=== PATIENT | male | born 1965 | race Caucasian/White ===

== ENCOUNTER 2022-12-02 23:35 | Inpatient (IN) | payer OTHER, SELFPAY ==
[2022-12-03 00:21] LABS: #Basophils 0.1 thou/uL (0.0-0.2); #Eosinphils 0.2 thou/uL (0.0-0.7); #Monocytes 1.7 thou/uL (0.11-0.59); #Neutrophils 9.2 thou/uL (1.40-6.50); %Basophils 0.6 % (0.0-1.0); %Eosinophils 1.4 % (0.0-10.0); %Lymphocytes 9.2 % (21.0-51.0); %Monocytes 13.5 % (0.0-10.0); %Neutrophils 74.4 % (42.0-75.0); Hemoglobin 10.3 g/dL (14.0-18.0); Mean Corpuscular HGB CONC 36.8 g/dL (32.0-36.0); Mean Corpuscular Volume 92.4 fl (78.0-98.0); Mean Platelet Volume 9.3 fL (7.4-10.4); Platelet Count 148 10x3/uL (130-400); RBC Distribution Width 13.8 % (11.5-14.5); Red Blood Cell (RBC) Count 3.03 mill/uL (4.70-6.10); White Blood Cell (WBC) Count 12.3 10x3/uL (4.8-10.8)
[2022-12-03] MEDS ORDERED: Ondansetron PF 4 MG/2 ML Vial ONE ×2 (00:26→10:58)
[2022-12-03] MEDS ORDERED: Sodium Chloride 0.9% 100 ML ONE (00:26)
[2022-12-03] MEDS ORDERED: cefTRIAXone (ROCEPHIN) 2 GM VIAL ONE (00:26)
[2022-12-03] MEDS ORDERED: Pantoprazole 80 MG in Sodium Chloride 0.9% 100 ML IVPB SCH (00:30)
[2022-12-03 00:34] LABS: INR-International Normal Ratio 1.4; PTT 30.2 sec (22.9-36.1); Prothrombin Time 17.6 sec (12.0-14.7)
[2022-12-03] MEDS ORDERED: Octreotide Acetate 100 MCG/ML VIAL ONE (00:38)
[2022-12-03] MEDS ORDERED: Octreotide Acetate 1,250 MCG in Sodium Chloride 0.9% 250 ML 250 ML IVPB SCH (00:45)
[2022-12-03 00:46] LABS: Acetaminophen Less than 10 mcg/mL (10.0-30.0); Alcohol Less than 10.0 mg/dL (Less than 10); Salicylate Less than 8.0 mg/dL (15.0-30.0)
[2022-12-03 00:50] LABS: ALT (SGPT) 44 U/L (8-55); AST (SGOT) 37 U/L (5-34); Alkaline Phosphatase 135 U/L (40-110); Anion Gap 13 mmol/L (10-20); BUN (Urea Nitrogen) 68 mg/dL (8.4-25.7); Bilirubin, Total 1.8 mg/dL (0.2-1.2); Calc. Creatinine Clearance 0 mL/min (70-130); Calcium 8.7 mg/dL (7.8-10.44); Carbon Dioxide 21 mmol/L (22-29); Chloride 96 mmol/L (98-107); Estimated GFR 54; Glucose 149 mg/dL (70-105); Potassium 5.6 mmol/L (3.5-5.1); Sodium 124 mmol/L (136-145)
[2022-12-03 01:05] LABS: Troponin I Less than 0.010 ng/mL (< 0.028)
[2022-12-03] MEDS ORDERED: Dextrose 5% in Water 1,000 ML IV PRN (02:01)
[2022-12-03] MEDS ORDERED: Dextrose 50% Abboject 50 ML SYRINGE SLOW IVP PRN (02:01)
[2022-12-03] MEDS ORDERED: Glucagon 1 MG/ML KIT IM PRN (02:01)
[2022-12-03] MEDS ORDERED: Acetaminophen 650 MG Suppository PR PRN ×2 (02:06→08:54)
[2022-12-03] MEDS ORDERED: Ondansetron PF 4 MG/2 ML Vial IVP PRN (02:06)
[2022-12-03] MEDS ORDERED: Insulin Regular 300 UNITS/3 ML VIAL IVP SCH (02:15)
[2022-12-03] MEDS ORDERED: Dextrose 5 %-0.45 % NaCl 500 ML IV SCH (02:15)
[2022-12-03 04:25] LABS: Troponin I Less than 0.010 ng/mL (< 0.028)
[2022-12-03] MEDS ORDERED: Lactated Ringer's 500 ML IV SCH (05:30)
[2022-12-03 06:43] LABS: #Eosinphils 0.1 thou/uL (0.0-0.7); #Monocytes 1.1 thou/uL (0.11-0.59); %Basophils 0.4 % (0.0-1.0); %Eosinophils 0.8 % (0.0-10.0); %Lymphocytes 7.4 % (21.0-51.0); %Monocytes 12.2 % (0.0-10.0); %Neutrophils 78.3 % (42.0-75.0); Hematocrit 26.6 % (42.0-52.0); Hemoglobin 9.5 g/dL (14.0-18.0); Mean Corpuscular HGB CONC 35.7 g/dL (32.0-36.0); Mean Corpuscular Hemoglobin 34.3 pg (27.0-31.0); Platelet Count 123 10x3/uL (130-400); RBC Distribution Width 13.8 % (11.5-14.5); Red Blood Cell (RBC) Count 2.77 mill/uL (4.70-6.10)
[2022-12-03] MEDS ORDERED: Pantoprazole 80 MG, Admixture Fee 1 EACH in Sodium Chloride 0.9% 100 ML IVPB SCH (06:45)
[2022-12-03 07:08] LABS: Troponin I Less than 0.010 ng/mL (< 0.028)
[2022-12-03 07:22] LABS: Chloride 96 mmol/L (98-107); Potassium 5.6 mmol/L (3.5-5.1); Sodium 123 mmol/L (136-145)
[2022-12-03 07:23] LABS: Calcium 8.6 mg/dL (7.8-10.44); Glucose 158 mg/dL (70-105)
[2022-12-03 07:24] LABS: Globulin 1.9 g/dL (2.4-3.5); Protein, Total 4.9 g/dL (6.0-8.3)
[2022-12-03 07:25] LABS: Anion Gap 11 mmol/L (10-20); Bilirubin, Total 1.3 mg/dL (0.2-1.2); Carbon Dioxide 22 mmol/L (22-29)
[2022-12-03 07:26] LABS: Alkaline Phosphatase 123 U/L (40-110)
[2022-12-03 07:27] LABS: BUN (Urea Nitrogen) 69 mg/dL (8.4-25.7); Calc. Creatinine Clearance 65 mL/min (70-130); Estimated GFR 55
[2022-12-03 07:28] LABS: AST (SGOT) 34 U/L (5-34)
[2022-12-03 07:29] LABS: ALT (SGPT) 42 U/L (8-55)
[2022-12-03 08:08] LABS: Bacteria/HPF None Seen HPF (None Seen); Bilirubin Negative (Negative); Blood, Urine Negative (Negative); Clarity Clear (Clear); Glucose, Urine (Dipstick) Normal (Negative); Ketone, Urine Negative (Negative); Leukocyte Negative Leu/uL (Negative); Nitrite Negative (Negative); Protein, Urine (Dipstick) Negative (Neg-Trace); RBC/HPF None Seen HPF (0-3); Squamous Epithelial None Seen HPF (0-3); Urobilinogen Normal mg/dL (Less than 2); WBC/HPF 0-3 HPF (0-3); pH, Urine 5.5 (5.0-9.0)
[2022-12-03 08:31] LABS: Creatinine, Urine 90.36 mg/dL (63-166); Protein, Urine Random Quant Less than 10 mg/dL (1-14); Sodium, Urine Less than 20 mmol/L (Not Available)
[2022-12-03 08:43] LABS: Urea Nitrogen, Random Urine Greater than 1200 mg/dl
[2022-12-03] MEDS: Pantoprazole 40 MG VIAL IVP SCH (08:48)
[2022-12-03] MEDS ORDERED: LOKELMA 10 GM PACKET PO SCH ×2 (09:00→15:17)
[2022-12-03] MEDS ORDERED: cefTRIAXone\\ROCEPHIN 1 GM in Sodium Chloride 0.9% 100 ML IVPB SCH (09:00)
[2022-12-03] MEDS ORDERED: Iopamidol-370 76% 500 ML MDV (1 ML CHARGE) ONE (10:22)
[2022-12-03] MEDS ORDERED: SUGAMMADEX SODIUM 200 MG/2 ML VIAL ONE (10:47)
[2022-12-03] MEDS ORDERED: Vasopressin 20 UNITS/ML VIAL ONE (10:47)
[2022-12-03] MEDS ORDERED: PHENYLEPHRINE-NS 100 MCG/ML 10 ML SYRINGE ONE (10:58)
[2022-12-03] MEDS ORDERED: Rocuronium Bromide 10 MG/ML (10ML VIAL) ONE (10:58)
[2022-12-03] MEDS ORDERED: Lidocaine 1% PF 5 ML VIAL ONE (10:58)
[2022-12-03] MEDS ORDERED: PROPOFOL 200 MG/20 ML VIAL ONE (10:58)
[2022-12-03] MEDS ORDERED: Dexamethasone 20 MG/5 ML VIAL ONE (10:58)
[2022-12-03] MEDS ORDERED: Albumin 5% 250 ML ONE (11:12)
[2022-12-03] MEDS ORDERED: Ondansetron HCl/PF 4 MG/2 ML Vial IVP PRN (11:46)
[2022-12-03] MEDS ORDERED: Promethazine HCl 25 MG/ML VIAL IM PRN (11:46)
[2022-12-03] MEDS ORDERED: fentaNYL 50 mcg/mL 1 mL Vial ONE (12:01)
[2022-12-03] MEDS ORDERED: Albumin 25% 25 GM/100 ML BOT IVPB SCH (13:15)
[2022-12-03] MEDS ORDERED: Sodium Chloride 0.9% 1,000 ML IV SCH (13:15)
[2022-12-03 13:28] LABS: #Eosinphils 0.1 thou/uL (0.0-0.7); #Monocytes 0.6 thou/uL (0.11-0.59); #Neutrophils 7.8 thou/uL (1.40-6.50); %Basophils 0.3 % (0.0-1.0); %Eosinophils 0.6 % (0.0-10.0); %Monocytes 6.1 % (0.0-10.0); %Neutrophils 86.1 % (42.0-75.0); Hematocrit 25.5 % (42.0-52.0); Hemoglobin 9.1 g/dL (14.0-18.0); Mean Corpuscular HGB CONC 35.7 g/dL (32.0-36.0); Mean Corpuscular Hemoglobin 34.2 pg (27.0-31.0); Mean Corpuscular Volume 95.9 fl (78.0-98.0); Mean Platelet Volume 9.1 fL (7.4-10.4); Platelet Count 120 10x3/uL (130-400); RBC Distribution Width 14.1 % (11.5-14.5); Red Blood Cell (RBC) Count 2.66 mill/uL (4.70-6.10); White Blood Cell (WBC) Count 9.1 10x3/uL (4.8-10.8)
[2022-12-03 14:03] LABS: ALT (SGPT) 38 U/L (8-55); AST (SGOT) 33 U/L (5-34); Albumin 3.2 g/dL (3.5-5.0); Alkaline Phosphatase 121 U/L (40-110); Anion Gap 12 mmol/L (10-20); BUN (Urea Nitrogen) 70 mg/dL (8.4-25.7); Bilirubin, Total 1.7 mg/dL (0.2-1.2); Calc. Creatinine Clearance 57 mL/min (70-130); Calcium 8.9 mg/dL (7.8-10.44); Carbon Dioxide 21 mmol/L (22-29); Chloride 96 mmol/L (98-107); Estimated GFR 47; Globulin 1.8 g/dL (2.4-3.5); Glucose 141 mg/dL (70-105); Potassium 5.5 mmol/L (3.5-5.1); Sodium 123 mmol/L (136-145)
[2022-12-03] MEDS: Albumin 25% 25 GM/100 ML BOT IVPB SCH ×2 (17:30→23:00)
[2022-12-03] MEDS: cefTRIAXone\\ROCEPHIN 1 GM in Sodium Chloride 0.9% 100 ML IVPB SCH (22:53)
[2022-12-03 23:42] LABS: Anion Gap 13 mmol/L (10-20); BUN (Urea Nitrogen) 71 mg/dL (8.4-25.7); Calc. Creatinine Clearance 52 mL/min (70-130); Calcium 9.4 mg/dL (7.8-10.44); Carbon Dioxide 20 mmol/L (22-29); Chloride 99 mmol/L (98-107); Estimated GFR 42; Glucose 147 mg/dL (70-105); Potassium 5.7 mmol/L (3.5-5.1); Sodium 126 mmol/L (136-145)
[2022-12-04] MEDS: Octreotide Acetate 1,250 MCG in Sodium Chloride 0.9% 250 ML 250 ML IVPB SCH ×2 (00:40→23:14)
[2022-12-04] MEDS: Albumin 25% 25 GM/100 ML BOT IVPB SCH ×2 (05:12→11:43)
[2022-12-04 07:20] LABS: Hematocrit 20.9 % (42.0-52.0); Hemoglobin 7.4 g/dL (14.0-18.0); Mean Corpuscular HGB CONC 35.4 g/dL (32.0-36.0); Mean Corpuscular Hemoglobin 34.6 pg (27.0-31.0); Mean Corpuscular Volume 97.7 fl (78.0-98.0); Mean Platelet Volume 9.1 fL (7.4-10.4); RBC Distribution Width 13.9 % (11.5-14.5); Red Blood Cell (RBC) Count 2.14 mill/uL (4.70-6.10); White Blood Cell (WBC) Count 10.8 10x3/uL (4.8-10.8)
[2022-12-04 07:23] LABS: Platelet Count 78 10x3/uL (130-400)
[2022-12-04 07:45] LABS: ALT (SGPT) 28 U/L (8-55); AST (SGOT) 26 U/L (5-34); Albumin 3.9 g/dL (3.5-5.0); Alkaline Phosphatase 95 U/L (40-110); Anion Gap 13 mmol/L (10-20); BUN (Urea Nitrogen) 64 mg/dL (8.4-25.7); Bilirubin, Total 1.1 mg/dL (0.2-1.2); Calc. Creatinine Clearance 55 mL/min (70-130); Calcium 9.5 mg/dL (7.8-10.44); Carbon Dioxide 20 mmol/L (22-29); Chloride 99 mmol/L (98-107); Estimated GFR 43; Globulin 1.5 g/dL (2.4-3.5); Glucose 138 mg/dL (70-105); Potassium 5.2 mmol/L (3.5-5.1); Protein, Total 5.4 g/dL (6.0-8.3); Sodium 127 mmol/L (136-145)
[2022-12-04] MEDS ORDERED: Sodium Bicarbonate 50 MEQ in Sodium Chloride 0.45% 1,000 ML IV SCH (08:30)
[2022-12-04] MEDS: Pantoprazole 40 MG VIAL IVP SCH (09:21)
[2022-12-04] MEDS: Sodium Bicarbonate Tab 325 MG TAB PO SCH ×3 (09:21→20:12)
[2022-12-04] MEDS: Midodrine HCl 5 MG TAB PO SCH ×2 (15:41→20:12)
[2022-12-04 19:37] LABS: #Eosinphils 0.1 thou/uL (0.0-0.7); #Monocytes 1.1 thou/uL (0.11-0.59); #Neutrophils 6.4 thou/uL (1.40-6.50); %Basophils 0.4 % (0.0-1.0); %Eosinophils 1.1 % (0.0-10.0); %Lymphocytes 10.8 % (21.0-51.0); %Monocytes 12.9 % (0.0-10.0); %Neutrophils 74.2 % (42.0-75.0); Hematocrit 21.6 % (42.0-52.0); Hemoglobin 7.6 g/dL (14.0-18.0); Mean Corpuscular HGB CONC 35.2 g/dL (32.0-36.0); Mean Corpuscular Hemoglobin 33.6 pg (27.0-31.0); Mean Corpuscular Volume 95.6 fl (78.0-98.0); Mean Platelet Volume 9.8 fL (7.4-10.4); RBC Distribution Width 14.8 % (11.5-14.5); Red Blood Cell (RBC) Count 2.26 mill/uL (4.70-6.10); White Blood Cell (WBC) Count 8.5 10x3/uL (4.8-10.8)
[2022-12-04 19:40] LABS: Platelet Count 71 10x3/uL (130-400)
[2022-12-04 20:09] LABS: Albumin 3.9 g/dL (3.5-5.0); Anion Gap 10 mmol/L (10-20); BUN (Urea Nitrogen) 55 mg/dL (8.4-25.7); BUN/Creatinine Ratio 35.71; Calc. Creatinine Clearance 65 mL/min (70-130); Calcium 9.1 mg/dL (7.8-10.44); Carbon Dioxide 23 mmol/L (22-29); Chloride 99 mmol/L (98-107); Estimated GFR 53; Glucose 121 mg/dL (70-105); Phosphorus 3.8 mg/dL (2.3-4.7); Potassium 4.4 mmol/L (3.5-5.1); Sodium 128 mmol/L (136-145)
[2022-12-04] MEDS: cefTRIAXone\\ROCEPHIN 1 GM in Sodium Chloride 0.9% 100 ML IVPB SCH (23:14)
[2022-12-05 04:14] LABS: #Eosinphils 0.1 thou/uL (0.0-0.7); #Monocytes 0.9 thou/uL (0.11-0.59); #Neutrophils 4.5 thou/uL (1.40-6.50); %Basophils 0.5 % (0.0-1.0); %Eosinophils 1.8 % (0.0-10.0); %Lymphocytes 15.1 % (21.0-51.0); %Monocytes 13.3 % (0.0-10.0); %Neutrophils 68.5 % (42.0-75.0); Hematocrit 21.6 % (42.0-52.0); Hemoglobin 7.5 g/dL (14.0-18.0); Mean Corpuscular HGB CONC 34.7 g/dL (32.0-36.0); Mean Corpuscular Hemoglobin 33.5 pg (27.0-31.0); Mean Corpuscular Volume 96.4 fl (78.0-98.0); Mean Platelet Volume 9.5 fL (7.4-10.4); RBC Distribution Width 15.5 % (11.5-14.5); Red Blood Cell (RBC) Count 2.24 mill/uL (4.70-6.10); White Blood Cell (WBC) Count 6.6 10x3/uL (4.8-10.8)
[2022-12-05 04:27] LABS: Platelet Count 65 10x3/uL (130-400)
[2022-12-05 04:34] LABS: ALT (SGPT) 28 U/L (8-55); AST (SGOT) 28 U/L (5-34); Albumin 3.7 g/dL (3.5-5.0); Alkaline Phosphatase 91 U/L (40-110); Anion Gap 10 mmol/L (10-20); BUN (Urea Nitrogen) 50 mg/dL (8.4-25.7); Bilirubin, Total 1.2 mg/dL (0.2-1.2); Calc. Creatinine Clearance 67 mL/min (70-130); Calcium 9.2 mg/dL (7.8-10.44); Carbon Dioxide 24 mmol/L (22-29); Chloride 99 mmol/L (98-107); Estimated GFR 55; Globulin 1.5 g/dL (2.4-3.5); Glucose 111 mg/dL (70-105); Potassium 4.6 mmol/L (3.5-5.1); Protein, Total 5.2 g/dL (6.0-8.3); Sodium 128 mmol/L (136-145)
[2022-12-05] MEDS ORDERED: Albumin 25% 25 GM/100 ML BOT IVPB SCH (07:00)
[2022-12-05 08:12] LABS: Iron 54 ug/dL (65-175); Iron Binding Capacity, Total 178 mcg/dL (261-462)
[2022-12-05] MEDS: Midodrine HCl 5 MG TAB PO SCH ×3 (09:27→21:19)
[2022-12-05] MEDS: Sodium Bicarbonate Tab 325 MG TAB PO SCH ×3 (09:27→21:19)
[2022-12-05] MEDS: Pantoprazole 40 MG VIAL IVP SCH (09:28)
[2022-12-05] MEDS: Albumin 25% 25 GM/100 ML BOT IVPB SCH ×2 (13:44→18:49)
[2022-12-05] MEDS: cefTRIAXone\\ROCEPHIN 1 GM in Sodium Chloride 0.9% 100 ML IVPB SCH (23:50)
[2022-12-06] MEDS: Albumin 25% 25 GM/100 ML BOT IVPB SCH ×2 (00:22→05:22)
[2022-12-06] MEDS: Octreotide Acetate 1,250 MCG in Sodium Chloride 0.9% 250 ML 250 ML IVPB SCH (01:20)
[2022-12-06 05:47] LABS: #Eosinphils 0.4 thou/uL (0.0-0.7); #Neutrophils 3.4 thou/uL (1.40-6.50); %Basophils 0.5 % (0.0-1.0); %Eosinophils 6.7 % (0.0-10.0); %Lymphocytes 17.3 % (21.0-51.0); %Neutrophils 57.2 % (42.0-75.0); Hemoglobin 10.4 g/dL (14.0-18.0); Mean Corpuscular Hemoglobin 28.1 pg (27.0-31.0); Mean Corpuscular Volume 82.7 fl (78.0-98.0); Mean Platelet Volume 11.5 fL (7.4-10.4); Platelet Count 245 10x3/uL (130-400); RBC Distribution Width 15.4 % (11.5-14.5)
[2022-12-06 05:50] LABS: Hematocrit 30.6 % (42.0-52.0)
[2022-12-06 06:18] LABS: ALT (SGPT) 9 U/L (8-55); AST (SGOT) 16 U/L (5-34); Albumin 3.1 g/dL (3.5-5.0); Alkaline Phosphatase 38 U/L (40-110); Anion Gap 15 mmol/L (10-20); BUN (Urea Nitrogen) 18 mg/dL (8.4-25.7); Bilirubin, Total 0.3 mg/dL (0.2-1.2); Calc. Creatinine Clearance 46 mL/min (70-130); Calcium 9.2 mg/dL (7.8-10.44); Carbon Dioxide 26 mmol/L (22-29); Chloride 97 mmol/L (98-107); Estimated GFR 34; Globulin 3.6 g/dL (2.4-3.5); Glucose 107 mg/dL (70-105); Potassium 3.5 mmol/L (3.5-5.1); Protein, Total 6.7 g/dL (6.0-8.3); Sodium 134 mmol/L (136-145)
[2022-12-06 07:56] LABS: #Eosinphils 0.1 thou/uL (0.0-0.7); #Monocytes 0.6 thou/uL (0.11-0.59); #Neutrophils 2.2 thou/uL (1.40-6.50); %Basophils 0.8 % (0.0-1.0); %Eosinophils 2.8 % (0.0-10.0); %Lymphocytes 20.6 % (21.0-51.0); %Monocytes 15.3 % (0.0-10.0); %Neutrophils 59.9 % (42.0-75.0); Mean Corpuscular HGB CONC 34.5 g/dL (32.0-36.0); Mean Corpuscular Hemoglobin 34.3 pg (27.0-31.0); Mean Platelet Volume 10.2 fL (7.4-10.4); RBC Distribution Width 15.5 % (11.5-14.5); Red Blood Cell (RBC) Count 1.98 mill/uL (4.70-6.10); White Blood Cell (WBC) Count 3.6 10x3/uL (4.8-10.8)
[2022-12-06 07:57] LABS: Platelet Count 61 10x3/uL (130-400)
[2022-12-06 07:58] LABS: Hemoglobin 6.8 g/dL (14.0-18.0)
[2022-12-06 07:59] LABS: Hematocrit 19.7 % (42.0-52.0); Mean Corpuscular Volume 99.5 fl (78.0-98.0)
[2022-12-06 08:57] LABS: ALT (SGPT) 21 U/L (8-55); AST (SGOT) 23 U/L (5-34); Albumin 4.3 g/dL (3.5-5.0); Alkaline Phosphatase 80 U/L (40-110); Anion Gap 10 mmol/L (10-20); BUN (Urea Nitrogen) 40 mg/dL (8.4-25.7); Bilirubin, Total 1.4 mg/dL (0.2-1.2); Calc. Creatinine Clearance 72 mL/min (70-130); Calcium 9.4 mg/dL (7.8-10.44); Carbon Dioxide 26 mmol/L (22-29); Chloride 100 mmol/L (98-107); Estimated GFR 60; Globulin 1.3 g/dL (2.4-3.5); Glucose 119 mg/dL (70-105); Potassium 4.2 mmol/L (3.5-5.1); Protein, Total 5.6 g/dL (6.0-8.3); Sodium 132 mmol/L (136-145)
[2022-12-06] MEDS: Pantoprazole 40 MG VIAL IVP SCH (09:07)
[2022-12-06] MEDS: Midodrine HCl 5 MG TAB PO SCH ×3 (09:15→20:39)
[2022-12-06] MEDS: Sodium Bicarbonate Tab 325 MG TAB PO SCH ×3 (09:15→20:39)
[2022-12-06 10:19] LABS: Hematocrit 20.7 % (42.0-52.0)
[2022-12-06 13:47] VITALS: BMI 26.4
[2022-12-06 20:13] VITALS: TEMP 97
== END 2022-12-06 21:30 | disposition short-term general hospital (02) | DRG 432 ==
LOC: ERS 23:35 → IMCU/EMU 12-03 01:23
PROVIDERS: ADMIT Student in an Organized Health Care Education/Training Program; ATTEND Family Medicine
PROC: 06L38CZ Occlusion of Esophageal Vein with Extraluminal Device, Via Natural or Artificial Opening Endoscopic (ICD-10-PCS; principal; 2022-12-03)
PROC: 30233N1 Transfusion of Nonautologous Red Blood Cells into Peripheral Vein, Percutaneous Approach (ICD-10-PCS; 2022-12-06)
DX: K70.31 Alcoholic cirrhosis of liver with ascites (principal); I85.11 Secondary esophageal varices with bleeding; R57.8 Other shock; K76.7 Hepatorenal syndrome; D62 Acute posthemorrhagic anemia; K76.6 Portal hypertension; N17.9 Acute kidney failure, unspecified; E87.20 Acidosis, unspecified; E22.2 Syndrome of inappropriate secretion of antidiuretic hormone; I10 Essential (primary) hypertension; E87.5 Hyperkalemia; K31.89 Other diseases of stomach and duodenum
CPT/HCPCS: 36415; 36416; 36430; 71045; 71275; 76705; 80053; 80307; 81001; 82570; 82728; 83540; 83550; 83605; 83930; 83935; 84156; 84300; 84484; 84540; 85025; 85027; 85610; 85730; 86850; 86900; 86901; 93005; 96365; 96367; 96375; C9113; J0696; J1100; J1815; J2354; J2405; J2704; J3010; J3490; J7042; J7050; J7120; P9016; P9045; P9047; Q9967